=== PATIENT | female | born 1970 | race Caucasian/White ===

== ENCOUNTER 2019-06-14 09:06 | Outpatient (RCR) | payer OTHER, SELFPAY | END 2019-06-14 23:59 | disposition home or self-care (01) | LOC: ANHAUDIO 09:06 | DX: Z46.1 Encounter for fitting and adjustment of hearing aid (principal) | CPT/HCPCS: 92507 ==

== ENCOUNTER 2020-01-21 07:31 | Outpatient (RCR) | payer OTHER, SELFPAY | END 2020-01-21 23:59 | disposition home or self-care (01) | LOC: ANHAUDIO 07:31 | DX: Z46.1 Encounter for fitting and adjustment of hearing aid (principal) | CPT/HCPCS: 99199 ==

== ENCOUNTER 2020-07-23 08:31 | Outpatient (RCR) | payer OTHER, SELFPAY | END 2020-07-23 23:59 | disposition home or self-care (01) | LOC: ANHAUDIO 08:31 | DX: Z46.1 Encounter for fitting and adjustment of hearing aid (principal) | CPT/HCPCS: V5241; V5257 ==

== ENCOUNTER 2021-12-17 13:21 | Outpatient (RCR) | payer OTHER, SELFPAY | END 2021-12-17 23:59 | disposition home or self-care (01) | LOC: ANHAUDIO 13:21 | DX: Z46.1 Encounter for fitting and adjustment of hearing aid (principal) | CPT/HCPCS: 99199 ==

== ENCOUNTER 2023-04-05 10:50 | Outpatient (CLI) | payer OTHER, SELFPAY | END 2023-04-05 10:51 | disposition home or self-care (01) | DX: H90.3 Sensorineural hearing loss, bilateral (principal) | CPT/HCPCS: 92557; 92567 ==